=== PATIENT | female | born 1960 | race Caucasian/White ===

== ENCOUNTER 2017-04-21 03:33 | Emergency (ER) | payer MEDICAID ==
[~2017-04-21] VITALS: Ht 157.5 cm; Wt 72.6 kg
[2017-04-21 03:46] VITALS: Ht 157.5 cm; Wt 72.6 kg
[2017-04-21 06:46] LABS: BASOPHIL % 0.4 % (0-2); PLATELET COUNT 204 x10^3mcL (130-400)
[2017-04-21 07:37] LABS: CARBON DIOXIDE 30 mmol/L (21-32); CHLORIDE SERUM 106 mmol/L (98-107); POTASSIUM SERUM 3.9 mmol/L (3.5-5.1); SODIUM SERUM 143 mmol/L (136-145)
[2017-04-21 07:38] LABS: CALCIUM 9.3 mg/dL (8.5-10.1)
[2017-04-21 07:39] LABS: CREATININE SERUM 0.7 mg/dL (0.6-1.0); GFR1 > 60 mL/min
[2017-04-21 08:00] LABS: GLUCOSE SERUM 128 mg/dL (74-106)
[2017-04-21 08:49] VITALS: BP 115/76
== END 2017-04-21 08:49 | disposition home or self-care (01) ==
LOC: ED 03:33
PROVIDERS: Emergency Medicine
DX: I10 Essential (primary) hypertension (principal); E11.9 Type 2 diabetes mellitus without complications; M19.90 Unspecified osteoarthritis, unspecified site
CPT/HCPCS: 36415